=== PATIENT | female | born 1950 | race Caucasian/White ===

== ENCOUNTER 2017-07-08 11:48 | Outpatient (CLI) | payer MEDICARE, BC ==
--- NOTE | 2017-07-08 15:59 | PET ---
PET CT WITH ATTENUATION CORRECTION: HISTORY: Manthle cell lymphoma, chronic. Evaluation for restaging. COMPARISON: 07/16/16. TECHNIQUE: PET scan with CT attenuation correction is performed from the base of the brain to the proximal thigh s following the intravenous administration of 10.2 mCi of [id number]. FINDINGS: HEAD AND NECK: Previously noted hypermetabolic activity in the base of the tongue is no longer present. No new area s of hypermetabolic activity. CHEST: Redemonstration of hypermetabolic activity involving the anterior left chest wall and left axillary l ymph node, due to previous silicone granulomas. No new areas of abnormal FDG localization of the kimmie [address]. ABDOMEN AND PELVIS: No abnormal FDG localization. OSSEOUS STRUCTURES: No abnormal FDG localization. IMPRESSION: No abnormal fluorodeoxyglucose localization. Findings suggest good response to therapy. POS: [facility]
== END 2017-07-08 11:49 | disposition home or self-care (01) ==
LOC: PET 11:48
PROVIDERS: ATTEND Internal Medicine Medical Oncology
DX: C83.18 Mantle cell lymphoma, lymph nodes of multiple sites (principal)
CPT/HCPCS: 78815; A9552

== ENCOUNTER 2017-07-29 08:10 | Outpatient (CLI) | payer MEDICARE, BC | END 2017-07-29 08:11 | disposition home or self-care (01) | LOC: BICMAMMO 08:10 | PROVIDERS: ATTEND Internal Medicine Medical Oncology | DX: Z12.31 Encounter for screening mammogram for malignant neoplasm of breast (principal); Z85.72 Personal history of non-Hodgkin lymphomas | CPT/HCPCS: 77063; 77067 ==

== ENCOUNTER 2018-05-28 07:29 | Outpatient (CLI) | payer MEDICARE, BC ==
--- NOTE | 2018-05-28 11:30 | PET ---
PET WITH CT SKULL TO MID THIGH: CLINICAL HISTORY: Lymphoma, follow-up, restaging. Reference made to prior PET CT exams and reference is also made to prior mammograms. Comparison PET C Ts date back to June 2015. BIODISTRIBUTION: There is appropriate biodistribution of radiotracer activity. RADIOPHARMACEUTICAL: 11.7 mCi F18-FDG IV intermixed with 10 mL 0.9% sodium chloride. FINDINGS: Redemonstration of multiple hypermetabolic soft tissue masses, noncalcified, within the left anterior chest wall/breast tissue with persistence of an area of postoperative scar/soft tissue distortion al jose r the left lateral aspect. These findings remain hypermetabolic with a SUV measuring up to approxim ately 10, comparing to SUV of approximately 9 maximum on recent comparison exam dated 07/08/17. There has been interval enlargement of a soft tissue mass of the right axilla, now measuring approxim ately 2.9 cm in transverse diameter compared to 2.1 cm on the prior exam, with a SUV of approximately 5.2, and this finding was not hypermetabolic on the prior exam. In addition, there is an approximate ly 8.0 mm hypermetabolic lymph node anterior to the right shoulder girdle within the subcutaneous tis sues with a SUV of approximately 3.5. There are new subtle areas of increased metabolic activity invo lving anterior right ribs, approximately 4th/5th rib levels, with a SUV approximating 2.5. Focus of i ncreased metabolic activity along the expected confines of the left trochanteric bursa may relate to a reactive etiology. No hypermetabolic mass or adenopathy identified within the abdomen or pelvis. Head and neck regions are grossly unremarkable by PET evaluation. IMPRESSION: Findings which are suspicious for interval development of metabolically active lymphoma, notably at t he right chest wall, as discussed above. The dominant right axillary-region mass would be amenable to ultrasound guided biopsy to further evaluate. For the subtle activity within right ribs, follow-up with bone scan may prove useful as clinically in dicated. Redemonstration of multiple hypermetabolic noncalcified soft tissue masses of the left breast/anterio r left chest wall. Telephone call with findings and recommendations was placed to patient's physician, venita Mejia the time of interpretation, 1030 hours on 05/28/18. CODE CR. POS: [facility]
== END 2018-05-28 07:30 | disposition home or self-care (01) ==
LOC: PET 07:29
PROVIDERS: ATTEND Internal Medicine Medical Oncology
DX: C83.10 Mantle cell lymphoma, unspecified site (principal); N64.89 Other specified disorders of breast; R59.0 Localized enlarged lymph nodes
CPT/HCPCS: 78815; A9552

== ENCOUNTER 2018-06-12 08:02 | Day surgery (SDC) | payer MEDICARE, BC ==
[2018-06-11 15:55] VITALS: BMI 35.2
[2018-06-12 08:29] LABS: INR-International Normal Ratio 0.9; PTT 28.3 SEC (22.9-36.1); Prothrombin Time 12.7 SEC (12.0-14.7)
[2018-06-12] MEDS ORDERED: Prevnar 13-Val Conj/PF 0.5 ML SYRINGE IM ONE (09:00)
[2018-06-12 09:01] VITALS: BP 175/68; TEMP 98.2
[2018-06-12] MEDS ORDERED: Fentanyl 100 MCG/2 ML VIAL ONE (09:09)
[2018-06-12] MEDS ORDERED: Midazolam HCl 2 mg/2 ml Vial ONE (09:10)
--- NOTE | 2018-06-12 12:11 | CT ---
CT GUIDED CHEST WALL MASS BIOPSY: HISTORY: Hypermetabolic chest wall adenopathy. CONSCIOUS SEDATION: 1 mg Versed, IV. 50 mcg Fentanyl, IV. At least 30 minutes were spent with the patient for conscious sedation. FINDINGS: After explaining the procedure and answering all questions, limited CT imaging of the chest was perfo rmed. Sterile technique, buffered local anesthesia, conscious sedation, and CT guidance were used to carefully advance a 17-gauge Trocar needle to the left anterior chest wall mass at the medial aspect of the breast via a medial approach. Position was confirmed with CT. Multiple 18-gauge core biopsy specimens were obtained and submitted to Dr. Sanderson from pathology for evaluation. Specimen adequacy was performed. The needle was removed. Postprocedure imaging shows no evidence of complication. T he patient tolerated the procedure well and was returned to the holding area in good condition for fu rther monitoring. IMPRESSION: Technically successful CT-guided chest wall mass biopsy. Pathology is pending. POS: [facility]
== END 2018-06-12 11:30 | disposition home or self-care (01) ==
LOC: CT 08:02
PROVIDERS: ATTEND Internal Medicine Medical Oncology
PROC: 0WB83ZX Excision of Chest Wall, Percutaneous Approach, Diagnostic (ICD-10-PCS; principal; 2018-06-12)
DX: C83.13 Mantle cell lymphoma, intra-abdominal lymph nodes (principal); F31.9 Bipolar disorder, unspecified; K21.9 Gastro-esophageal reflux disease without esophagitis; Z79.1 Long term (current) use of non-steroidal anti-inflammatories (NSAID); Z79.899 Other long term (current) drug therapy; Z88.2 Allergy status to sulfonamides; Z88.8 Allergy status to other drugs, medicaments and biological substances
CPT/HCPCS: 32405; 36415; 77012; 85610; 85730; 88184; 88305; 88333; 88334; J2250; J3010

== ENCOUNTER 2018-06-26 08:56 | Day surgery (SDC) | payer MEDICARE, BC ==
[2018-06-25 12:49] VITALS: BMI 39.0
[2018-06-26] MEDS ORDERED: Prevnar 13-Val Conj/PF 0.5 ML SYRINGE IM ONE (09:00)
[2018-06-26 11:58] VITALS: BP 160/82; TEMP 99.2
--- NOTE | 2018-06-26 13:45 | CT ---
CT GUIDED CHEST WALL MASS BIOPSY: INDICATIONS: Right chest mass with history of lymphoma and increased metabolic activity on recent PET imaging. SEDATION: Conscious sedation was administered, and the patient was continually monitored for an approximately 4 5-minute duration. MEDICATIONS: Documented in the nurse charting, within the radiology department. TECHNIQUE: Informed consent was obtained. The patient was escorted to the procedural suite and placed in the le ft decubitus position. The right chest wall was prepped and draped in the standard sterile fashion a nd the mass of interest was targeted utilizing CT fluoroscopy. After standard sterile prepping and d raping was performed, topical anesthesia was achieved with buffered 1% Lidocaine, and a small skin in cision was made, though which a 17 gauge trocar was advanced to the leading edge of the mass. Subseq uently, six core specimens, using an 18 gauge biopsy, were acquired. These were submitted to the [facility] hologist for interpretation. The specimens were deemed adequate for interpretation. Subsequently, a ll the devices were removed from the patient. No procedural complications were present. The patient was transferred to radiology holding and continuously monitored, in stable condition, prior to disch arge. IMPRESSION: Technically successful CT guided right chest wall mass biopsy. Pathology results are pending. POS: [facility]
== END 2018-06-26 13:15 | disposition home or self-care (01) ==
LOC: CT 08:56
PROVIDERS: ATTEND Internal Medicine Medical Oncology
PROC: 0WB83ZX Excision of Chest Wall, Percutaneous Approach, Diagnostic (ICD-10-PCS; principal; 2018-06-26)
DX: C83.13 Mantle cell lymphoma, intra-abdominal lymph nodes (principal); R22.2 Localized swelling, mass and lump, trunk; M19.90 Unspecified osteoarthritis, unspecified site; K21.9 Gastro-esophageal reflux disease without esophagitis; F31.9 Bipolar disorder, unspecified; Z79.1 Long term (current) use of non-steroidal anti-inflammatories (NSAID); Z79.899 Other long term (current) drug therapy; Z88.2 Allergy status to sulfonamides; Z88.6 Allergy status to analgesic agent; Z88.8 Allergy status to other drugs, medicaments and biological substances
CPT/HCPCS: 71250; 77012; 88184; 88304; 88313; 88333; 88334; 88341; 88342

== ENCOUNTER 2019-01-04 09:25 | Outpatient (CLI) | payer MEDICARE, BC ==
--- NOTE | 2019-01-04 10:09 | MMO ---
Bilateral MAMMO Bilat Screen [facility]. CLINICAL HISTORY: Patient is 68 years old and is seen for screening. The patient has no family history of breast cancer. The patient has a history of lymphoma. The patient has a history of left needle biopsy in July, - benign - ct guided core bx, Implants - 30 yrs ago. VIEWS: The views performed were: bilateral craniocaudal with tomosynthesis and bilateral mediolateral oblique with tomosynthesis. FILMS COMPARED: The present examination has been compared to prior imaging studies performed at [facility] [place] [facility] on 07/15/2013, 01/13/2015, 08/08/2015 and 07/29/2017. MAMMOGRAM FINDINGS: The breasts are heterogeneously dense, which could obscure a lesion on mammography. Finding 1: There are stable benign appearing densities seen in both breasts. Finding 2: There are stable benign appearing calcifications seen in both breasts. There are no suspicious masses, suspicious calcifications, or new areas of architectural distortion. IMPRESSION: THERE IS NO MAMMOGRAPHIC EVIDENCE OF MALIGNANCY. A ROUTINE FOLLOW-UP MAMMOGRAM IN 1 YEAR IS RECOMMENDED. THE RESULTS OF THIS EXAM WERE SENT TO THE PATIENT. ACR BI-RADS Category 2 - Benign finding MAMMOGRAPHY NOTE: 1. A negative mammogram report should not delay a biopsy if a dominant of clinically suspicious mass is present. 2. Approximately 10% to 15% of breast cancers are not detected by mammography. 3. Adenosis and dense breasts may obscure an underlying neoplasm. Reported by: YAQUELIN KENNEDY MD Electonically Signed: [id number]
== END 2019-01-04 09:26 | disposition home or self-care (01) ==
LOC: BICMAMMO 09:25
PROVIDERS: ATTEND Internal Medicine Medical Oncology
DX: Z12.31 Encounter for screening mammogram for malignant neoplasm of breast (principal); Z91.89 Other specified personal risk factors, not elsewhere classified; Z85.72 Personal history of non-Hodgkin lymphomas
CPT/HCPCS: 77063; 77067

== ENCOUNTER 2019-01-05 11:25 | Outpatient (CLI) | payer MEDICARE, BC ==
--- NOTE | 2019-01-05 14:07 | PET ---
PET CT: 01/05/19 HISTORY: 68-year-old female with mantle cell lymphoma at base of tongue and GI tract. Silicone granuloma chest wall, axilla. Patient is on daily oral chemotherapy. Exam is requested for restaging. TECHNIQUE: PET scan with CT attenuation correction was performed from the vertex through the proximal thighs fol lowing the intravenous administration of 12 millicuries of 15-fluorodeoxyglucose in the right hand. COMPARISON: PET scan of 05/28/18. FINDINGS: Hypermetabolic soft tissue densities in the left anterior and lateral chest wall are again seen with maximum SUV of 10.6 (previously 14.4) anteriorly and 6 laterally (previously 7.2). The focal area of increased uptake in the right lateral chest/axilla has an SUV of 4.3 (previously 4. 8). This was biopsied on 06/26/2018 and found to represent a foreign body-like giant cell reaction. No ashley hypermetabolism is seen in the neck, mediastinum, hilar regions, abdomen, pelvis or inguinal regions. No hypermetabolic pulmonary nodules, liver, adrenal or skeletal lesions are seen. IMPRESSION: No new lesions are seen. 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 POS: [facility]
== END 2019-01-05 11:26 | disposition home or self-care (01) ==
LOC: PET 11:25
PROVIDERS: ATTEND Internal Medicine Medical Oncology
DX: C83.13 Mantle cell lymphoma, intra-abdominal lymph nodes (principal)
CPT/HCPCS: 78815; A9552

== ENCOUNTER 2019-11-04 08:58 | Outpatient (CLI) | payer MEDICARE, BC ==
--- NOTE | 2019-11-04 11:47 | PET ---
Radionucleotide PET scan with CT attenuation correction HISTORY: Mantle cell lymphoma intra-abdominal lymph nodes. Base of tongue. Silicone granuloma chest w all and axilla. No therapy. Restaging. COMPARISON: 01/05/2019. FINDINGS: Physiologic uptake of radiotracer is present throughout the enteric system and along each u rinary tract and is associated with the muscles of phonation. Uptake associated with a 0.7 cm deep subcutaneous left upper anterior chest wall nodule, immediately superficial to the pectoralis muscle now shows max SUV 3.1 (previously 1.3). More inferior and medial, uptake associated with the larger deep subcutaneous nodule is now 4.9 (prev iously 3.4) Within the deep slightly lateral aspect of the right breast extending to the axillary tail, immediate ly superficial to the chest wall, max SUV is now 6.8 (previously 4.3). Within the left breast tissue, stable appearing areas of masslike soft tissue density show max SUV up take:: Medial 11.0 (previously 10.6) Central 5.1 (previously 5.0) Inferior/lateral 8.0 (previously 6.0). No abnormal uptake is apparent within abdominal lymph nodes. Areas of heterogeneous slightly increased uptake are scattered throughout the skeleton, with an appea misael less focal than normally seen with neoplastic disease. The most conspicuous areas include: Left humeral head max SUV 3.2 Left acetabulum max SUV 3.6 (previously 2.5) Right acetabulum max SUV 3.2 (previously 2.1). Nondiagnostic CT attenuation correction images show air-fluid levels within the maxillary and sphenoi d sinuses. There is prominent calcification throughout the arterial structures including the coronary arteries. Tiny nonspecific subpleural nodule is noted at the right anterior lung base. IMPRESSION : Very little change. Activity associated with the left upper anterior chest wall nodules has increased slightly. The only new areas of mildly hypermetabolic activity are ill-defined foci within the skeleton. Favore d to be reactive rather than neoplastic. Maxillary/sphenoid sinusitis Prominent atherosclerosis.
== END 2019-11-04 08:59 | disposition home or self-care (01) ==
LOC: PET 08:58
PROVIDERS: ATTEND Internal Medicine Medical Oncology
DX: C83.13 Mantle cell lymphoma, intra-abdominal lymph nodes (principal); I70.90 Unspecified atherosclerosis; R22.2 Localized swelling, mass and lump, trunk; R93.89 Abnormal findings on diagnostic imaging of other specified body structures
CPT/HCPCS: 78815; A9552

== ENCOUNTER 2020-03-08 09:37 | Outpatient (CLI) | payer MEDICARE, BC ==
--- NOTE | 2020-03-08 10:31 | MMO ---
Bilateral MAMMO Bilat Screen [facility]. CLINICAL HISTORY: Patient is 69 years old and is seen for diagnostic exam. The patient has no family history of breast cancer. The patient has a history of lymphoma. The patient has a history of left needle biopsy in July, - benign - ct guided leaked and Implants - 30 yrs ago. VIEWS: The views performed were: bilateral craniocaudal with tomosynthesis; bilateral mediolateral oblique with tomosynthesis; and bilateral mediolateral with tomosynthesis. FILMS COMPARED: The present examination has been compared to prior imaging studies performed at [facility] on 01/13/2015, 08/08/2015, 07/29/2017 and 01/04/2019. This study has been interpreted with the assistance of computer-aided detection. MAMMOGRAM FINDINGS: The breasts are heterogeneously dense, which could obscure a lesion on mammography. Finding 1: There are stable masses seen in both breasts. Finding 2: There are stable benign appearing calcifications seen in both breasts. There are no suspicious masses, suspicious calcifications, or new areas of architectural distortion. IMPRESSION: THERE IS NO MAMMOGRAPHIC EVIDENCE OF MALIGNANCY. A ROUTINE FOLLOW-UP MAMMOGRAM IN 1 YEAR IS RECOMMENDED. THE RESULTS OF THIS EXAM WERE SENT TO THE PATIENT. ACR BI-RADS Category 2 - Benign finding MAMMOGRAPHY NOTE: 1. A negative mammogram report should not delay a biopsy if a dominant of clinically suspicious mass is present. 2. Approximately 10% to 15% of breast cancers are not detected by mammography. 3. Adenosis and dense breasts may obscure an underlying neoplasm. Reported by: SHARDA CUEVAS MD Electonically Signed: [id number]
== END 2020-03-08 09:38 | disposition home or self-care (01) ==
LOC: BICMAMMO 09:37
PROVIDERS: ATTEND Internal Medicine Medical Oncology
DX: Z12.31 Encounter for screening mammogram for malignant neoplasm of breast (principal); Z85.72 Personal history of non-Hodgkin lymphomas; Z91.89 Other specified personal risk factors, not elsewhere classified; Z98.82 Breast implant status
CPT/HCPCS: 77063; 77067

== ENCOUNTER 2020-08-07 07:22 | Outpatient (CLI) | payer MEDICARE, BC | END 2020-08-07 07:23 | disposition home or self-care (01) | LOC: PET 07:22 | PROVIDERS: ATTEND Internal Medicine Medical Oncology | DX: C83.10 Mantle cell lymphoma, unspecified site (principal) | CPT/HCPCS: 78815; A9552 ==

== ENCOUNTER 2021-03-13 11:44 | Outpatient (CLI) | payer MEDICARE, BC | END 2021-03-13 11:45 | disposition home or self-care (01) | LOC: BICMAMMO 11:44 | PROVIDERS: ATTEND Internal Medicine Medical Oncology | DX: Z12.31 Encounter for screening mammogram for malignant neoplasm of breast (principal); Z85.72 Personal history of non-Hodgkin lymphomas | CPT/HCPCS: 77063; 77067 ==

== ENCOUNTER 2021-09-18 08:00 | Outpatient (CLI) | payer MEDICARE, BC | END 2021-09-18 08:01 | disposition home or self-care (01) | LOC: PET 08:00 | PROVIDERS: ATTEND Internal Medicine Medical Oncology | DX: C83.13 Mantle cell lymphoma, intra-abdominal lymph nodes (principal); J32.0 Chronic maxillary sinusitis | CPT/HCPCS: 78815; A9552 ==

== ENCOUNTER 2021-11-30 13:29 | Inpatient (IN) | payer MEDICARE, BC ==
[~2021-11-30 13:29] MED LIST: ISOVUE-370 76%-LOCM 1 ML ONE
[2021-11-30 14:23] LABS: ALT (SGPT) 11 U/L (8-55); AST (SGOT) 22 U/L (5-34); Albumin 3.7 g/dL (3.4-4.8); Alkaline Phosphatase 108 U/L (40-110); Anion Gap 17 mmol/L (10-20); BUN (Urea Nitrogen) 11 mg/dL (9.8-20.1); Bilirubin, Total 0.4 mg/dL (0.2-1.2); Calc. Creatinine Clearance 0 mL/min (70-130); Calcium 8.6 mg/dL (7.8-10.44); Carbon Dioxide 21 mmol/L (23-31); Chloride 101 mmol/L (98-107); Estimated GFR 64; Globulin 2.7 g/dL (2.4-3.5); Glucose 100 mg/dL (80-115); Potassium 4.4 mmol/L (3.5-5.1); Protein, Total 6.4 g/dL (5.8-8.1); Sodium 135 mmol/L (136-145)
[2021-11-30 14:36] LABS: #Lymphocytes 1.2 thou/uL (1.20-3.40); #Monocytes 0.8 thou/uL (0.11-0.59); #Neutrophils 4.6 thou/uL (1.40-6.50); %Basophils 0.2 % (0.0-1.0); %Eosinophils 0.4 % (0.0-10.0); %Lymphocytes 17.7 % (21.0-51.0); %Monocytes 11.5 % (0.0-10.0); %Neutrophils 70.3 % (42.0-75.0); Hemoglobin 13.6 g/dL (12.0-16.0); Mean Corpuscular HGB CONC 33.3 g/dL (32.0-36.0); Mean Corpuscular Hemoglobin 30.6 pg (27.0-31.0); Mean Corpuscular Volume 92.1 fL (78.0-98.0); Mean Platelet Volume 7.1 fL (7.4-10.4); Platelet Count 205 thou/uL (130-400); RBC Distribution Width 12.4 % (11.5-14.5); Red Blood Cell (RBC) Count 4.45 mill/uL (4.20-5.40); White Blood Cell (WBC) Count 6.6 thou/uL (4.8-10.8)
[2021-11-30 14:36] LABS: Bilirubin Negative (Negative); Blood, Urine Negative (Negative); Clarity Clear (Clear); Glucose, Urine (Dipstick) Normal (Negative); Ketone, Urine Negative (Negative); Leukocyte Negative Leu/uL (Negative); Nitrite Negative (Negative); Protein, Urine (Dipstick) Negative (Neg-Trace); Specific Gravity, Urine 1.019 (1.002-1.036); Urobilinogen Normal mg/dL (Less than 2); pH, Urine 7.5 (5.0-9.0)
[2021-11-30 14:40] LABS: INR-International Normal Ratio 1.1; PTT 31.1 sec (22.9-36.1); Prothrombin Time 13.9 sec (12.0-14.7)
[2021-11-30 14:44] LABS: Amphetamine Not Detected (NotDetected); Barbiturates Screen Not Detected (NotDetected); Benzodiazepine Screen Detected (NotDetected); Cocaine Metabolite Screen Not Detected (NotDetected); Methadone Not Detected (NotDetected); Methamphetamine Not Detected (NotDetected); Opiate Screen Not Detected (NotDetected); Oxycodone Screen Not Detected (NotDetected); Phencyclidine (PCP) Not Detected (NotDetected); THC/Cannabinoid Screen Not Detected (NotDetected); Tricyclic Screen Detected (NotDetected)
[2021-11-30 14:57] LABS: Acetaminophen Less than 10.0 mcg/mL (10.0-30.0); Alcohol Less than 10 mg/dL (Less than 10); Salicylate Less than 8.0 mg/dL (15.0-30.0)
[2021-11-30] MEDS ORDERED: Ondansetron PF 4 MG/2 ML Vial IVP PRN (17:16)
[2021-11-30] MEDS ORDERED: Ondansetron ODT 4 MG TAB PO PRN (17:16)
[2021-11-30] MEDS ORDERED: hydrALAZINE 20 MG/ML VIAL SLOW IVP PRN (17:19)
[2021-11-30] MEDS ORDERED: Aspirin 325 mg Enteric Coated Tablet PO SCH (17:30)
[2021-11-30 18:30] VITALS: BMI 35.9
[2021-11-30] MEDS: Acetaminophen 325 MG TAB PO PRN (20:21)
[2021-11-30] MEDS: Atorvastatin Calcium 40 MG TAB PO SCH (20:22)
[2021-11-30 22:23] LABS: SARS-CoV-2 NAA Rapid Test DETECTED (NotDetected)
[2021-12-01] MEDS: Acetaminophen 325 MG TAB PO PRN ×2 (04:43→20:22)
[2021-12-01 06:00] LABS: #Lymphocytes 1.7 thou/uL (1.20-3.40); #Monocytes 1.1 thou/uL (0.11-0.59); #Neutrophils 5.4 thou/uL (1.40-6.50); %Basophils 0.2 % (0.0-1.0); %Eosinophils 0.3 % (0.0-10.0); %Lymphocytes 20.4 % (21.0-51.0); %Monocytes 13.6 % (0.0-10.0); %Neutrophils 65.5 % (42.0-75.0); Hemoglobin 13.8 g/dL (12.0-16.0); Mean Corpuscular HGB CONC 33.4 g/dL (32.0-36.0); Mean Corpuscular Hemoglobin 30.9 pg (27.0-31.0); Mean Corpuscular Volume 92.7 fL (78.0-98.0); Mean Platelet Volume 7.2 fL (7.4-10.4); Platelet Count 200 thou/uL (130-400); RBC Distribution Width 12.6 % (11.5-14.5); Red Blood Cell (RBC) Count 4.45 mill/uL (4.20-5.40); White Blood Cell (WBC) Count 8.3 thou/uL (4.8-10.8)
[2021-12-01 06:26] LABS: ALT (SGPT) 11 U/L (8-55); AST (SGOT) 18 U/L (5-34); Alkaline Phosphatase 113 U/L (40-110); Anion Gap 19 mmol/L (10-20); BUN (Urea Nitrogen) 14 mg/dL (9.8-20.1); Bilirubin, Total 0.5 mg/dL (0.2-1.2); Calc. Creatinine Clearance 83 mL/min (70-130); Carbon Dioxide 23 mmol/L (23-31); Chloride 101 mmol/L (98-107); Cholesterol 149 mg/dl (< 200 Desired); Estimated GFR 58; Globulin 2.8 g/dL (2.4-3.5); Glucose 96 mg/dL (80-115); HDL Cholesterol 30 mg/dL (>60 Neg Risk); LDL Cholesterol, Calculated 89 mg/dL; Potassium 3.6 mmol/L (3.5-5.1); Protein, Total 6.8 g/dL (5.8-8.1); Sodium 139 mmol/L (136-145); Triglycerides 151 mg/dL (Less than 150)
[2021-12-01] MEDS ORDERED: Lorazepam 1 MG TAB PO PRN (09:10)
[2021-12-01] MEDS: Enoxaparin Sodium 30 MG/0.3 ML SYRINGE SC SCH (10:12)
[2021-12-01] MEDS: Aspirin 81 mg Enteric Coated Tablet PO SCH (10:12)
[2021-12-01] MEDS: REMDESIVIR 200 MG in Sodium Chloride 0.9% 250 ML 210 ML IV SCH ×2 (13:20→14:24)
[2021-12-01] MEDS ORDERED: REMDESIVIR 200 MG in Sodium Chloride 0.9% 250 ML 210 ML IV SCH (14:00)
[2021-12-01] MEDS: Famotidine 20 MG TAB PO SCH (20:22)
[2021-12-01] MEDS: Atorvastatin Calcium 40 MG TAB PO SCH (20:22)
[2021-12-01] MEDS: Ipratropium/Albuterol Sulfate 4 GM AER IH SCH (20:22)
[2021-12-02] MEDS: Ipratropium/Albuterol Sulfate 4 GM AER IH SCH ×4 (00:01→20:14)
[2021-12-02] MEDS: Acetaminophen 325 MG TAB PO PRN ×2 (02:14→20:19)
[2021-12-02] MEDS: REMDESIVIR 100 MG in Sodium Chloride 0.9% 250 ML 230 ML IV SCH (09:09)
[2021-12-02] MEDS: Enoxaparin Sodium 30 MG/0.3 ML SYRINGE SC SCH (09:09)
[2021-12-02] MEDS: Famotidine 20 MG TAB PO SCH ×2 (09:09→20:08)
[2021-12-02] MEDS: Aspirin 81 mg Enteric Coated Tablet PO SCH (09:09)
[2021-12-02] MEDS ORDERED: REMDESIVIR 100 MG in Sodium Chloride 0.9% 250 ML 230 ML IV SCH (13:00)
[2021-12-02] MEDS ORDERED: ALPRAZolam 0.5 MG TAB PO PRN (16:36)
[2021-12-02] MEDS: Dexamethasone 4 mg/ml Vial SLOW IVP SCH (16:50)
[2021-12-02] MEDS: Atorvastatin Calcium 40 MG TAB PO SCH (20:08)
[2021-12-02] MEDS: Escitalopram Oxalate 10 mg Tablet PO SCH (20:09)
[2021-12-03] MEDS: Ipratropium/Albuterol Sulfate 4 GM AER IH SCH ×5 (01:26→20:24)
[2021-12-03] MEDS: ALPRAZolam 1 MG TAB PO PRN ×2 (01:26→20:31)
[2021-12-03 05:19] LABS: #Lymphocytes 0.6 thou/uL (1.20-3.40); #Monocytes 0.2 thou/uL (0.11-0.59); #Neutrophils 6.2 thou/uL (1.40-6.50); %Eosinophils 0.3 % (0.0-10.0); %Lymphocytes 8.7 % (21.0-51.0); %Monocytes 2.8 % (0.0-10.0); %Neutrophils 88.2 % (42.0-75.0); Hemoglobin 13.1 g/dL (12.0-16.0); Mean Corpuscular HGB CONC 32.4 g/dL (32.0-36.0); Mean Corpuscular Hemoglobin 30.3 pg (27.0-31.0); Mean Corpuscular Volume 93.6 fL (78.0-98.0); Mean Platelet Volume 7.4 fL (7.4-10.4); Platelet Count 180 thou/uL (130-400); RBC Distribution Width 12.3 % (11.5-14.5); Red Blood Cell (RBC) Count 4.31 mill/uL (4.20-5.40)
[2021-12-03 05:43] LABS: ALT (SGPT) 12 U/L (8-55); AST (SGOT) 15 U/L (5-34); Albumin 3.9 g/dL (3.4-4.8); Alkaline Phosphatase 115 U/L (40-110); Anion Gap 15 mmol/L (10-20); BUN (Urea Nitrogen) 15 mg/dL (9.8-20.1); Bilirubin, Total 0.4 mg/dL (0.2-1.2); CRP (Inflammatory) 12.95 mg/dL (= or < 0.5); Calc. Creatinine Clearance 92 mL/min (70-130); Calcium 9.2 mg/dL (7.8-10.44); Carbon Dioxide 24 mmol/L (23-31); Chloride 103 mmol/L (98-107); Estimated GFR 66; Glucose 169 mg/dL (80-115); Potassium 3.9 mmol/L (3.5-5.1); Protein, Total 6.9 g/dL (5.8-8.1); Sodium 138 mmol/L (136-145)
[2021-12-03] MEDS: REMDESIVIR 100 MG in Sodium Chloride 0.9% 250 ML 230 ML IV SCH (09:39)
[2021-12-03] MEDS: Enoxaparin Sodium 30 MG/0.3 ML SYRINGE SC SCH (09:39)
[2021-12-03] MEDS: Aspirin 81 mg Enteric Coated Tablet PO SCH (09:40)
[2021-12-03] MEDS: Famotidine 20 MG TAB PO SCH ×2 (09:40→20:24)
[2021-12-03] MEDS: Dexamethasone 4 mg/ml Vial SLOW IVP SCH (16:24)
[2021-12-03] MEDS: Acetaminophen 325 MG TAB PO PRN (18:12)
[2021-12-03] MEDS: Atorvastatin Calcium 40 MG TAB PO SCH (20:24)
[2021-12-03] MEDS: Escitalopram Oxalate 10 mg Tablet PO SCH (20:24)
[2021-12-04 05:07] LABS: #Lymphocytes 0.6 thou/uL (1.20-3.40); #Monocytes 0.3 thou/uL (0.11-0.59); #Neutrophils 7.8 thou/uL (1.40-6.50); %Basophils 0.5 % (0.0-1.0); %Eosinophils 0.1 % (0.0-10.0); %Neutrophils 89.4 % (42.0-75.0); Hemoglobin 12.3 g/dL (12.0-16.0); Mean Corpuscular HGB CONC 32.8 g/dL (32.0-36.0); Mean Corpuscular Hemoglobin 30.7 pg (27.0-31.0); Mean Corpuscular Volume 93.5 fL (78.0-98.0); Mean Platelet Volume 7.6 fL (7.4-10.4); Platelet Count 200 thou/uL (130-400); RBC Distribution Width 12.3 % (11.5-14.5); Red Blood Cell (RBC) Count 4.02 mill/uL (4.20-5.40); White Blood Cell (WBC) Count 8.7 thou/uL (4.8-10.8)
[2021-12-04 05:25] LABS: ALT (SGPT) 9 U/L (8-55); AST (SGOT) 11 U/L (5-34); Albumin 3.8 g/dL (3.4-4.8); Alkaline Phosphatase 108 U/L (40-110); Anion Gap 16 mmol/L (10-20); BUN (Urea Nitrogen) 23 mg/dL (9.8-20.1); Bilirubin, Total 0.2 mg/dL (0.2-1.2); Calc. Creatinine Clearance 89 mL/min (70-130); Calcium 9.2 mg/dL (7.8-10.44); Carbon Dioxide 23 mmol/L (23-31); Chloride 104 mmol/L (98-107); Estimated GFR 64; Globulin 2.7 g/dL (2.4-3.5); Glucose 154 mg/dL (80-115); Potassium 3.8 mmol/L (3.5-5.1); Protein, Total 6.5 g/dL (5.8-8.1); Sodium 139 mmol/L (136-145)
[2021-12-04] MEDS: Enoxaparin Sodium 30 MG/0.3 ML SYRINGE SC SCH (10:01)
[2021-12-04] MEDS: Ipratropium/Albuterol Sulfate 4 GM AER IH SCH ×3 (10:02→19:33)
[2021-12-04] MEDS: REMDESIVIR 100 MG in Sodium Chloride 0.9% 250 ML 230 ML IV SCH (10:02)
[2021-12-04] MEDS: Aspirin 81 mg Enteric Coated Tablet PO SCH (10:02)
[2021-12-04] MEDS: Famotidine 20 MG TAB PO SCH ×2 (10:02→20:25)
[2021-12-04] MEDS: Acetaminophen 325 MG TAB PO PRN ×2 (11:07→19:49)
[2021-12-04] MEDS: ALPRAZolam 1 MG TAB PO PRN ×2 (11:07→19:48)
[2021-12-04 11:31] LABS: SARS-CoV-2 IgG Spike Ab Interp Non-Reactive (NonReactive); SARS-CoV-2 IgG Spike Conc/Indx 19.1 AU/mL (0.00-50.0)
[2021-12-04] MEDS: Dexamethasone 4 mg/ml Vial SLOW IVP SCH (16:21)
[2021-12-04] MEDS: Atorvastatin Calcium 40 MG TAB PO SCH (20:25)
[2021-12-04] MEDS: Escitalopram Oxalate 10 mg Tablet PO SCH (20:26)
[2021-12-05] MEDS: Ipratropium/Albuterol Sulfate 4 GM AER IH SCH ×3 (02:44→12:27)
[2021-12-05 05:05] LABS: #Lymphocytes 0.7 thou/uL (1.20-3.40); #Monocytes 0.3 thou/uL (0.11-0.59); #Neutrophils 6.1 thou/uL (1.40-6.50); %Eosinophils 0.3 % (0.0-10.0); %Lymphocytes 9.1 % (21.0-51.0); %Monocytes 3.8 % (0.0-10.0); %Neutrophils 86.8 % (42.0-75.0); Hemoglobin 11.8 g/dL (12.0-16.0); Mean Corpuscular HGB CONC 32.1 g/dL (32.0-36.0); Mean Corpuscular Hemoglobin 29.8 pg (27.0-31.0); Mean Corpuscular Volume 92.6 fL (78.0-98.0); Mean Platelet Volume 7.9 fL (7.4-10.4); Platelet Count 198 thou/uL (130-400); RBC Distribution Width 12.4 % (11.5-14.5); Red Blood Cell (RBC) Count 3.97 mill/uL (4.20-5.40); White Blood Cell (WBC) Count 7.1 thou/uL (4.8-10.8)
[2021-12-05 05:35] LABS: ALT (SGPT) 9 U/L (8-55); AST (SGOT) 11 U/L (5-34); Albumin 3.6 g/dL (3.4-4.8); Alkaline Phosphatase 97 U/L (40-110); Anion Gap 15 mmol/L (10-20); BUN (Urea Nitrogen) 27 mg/dL (9.8-20.1); Bilirubin, Total 0.2 mg/dL (0.2-1.2); Calc. Creatinine Clearance 104 mL/min (70-130); Calcium 8.8 mg/dL (7.8-10.44); Carbon Dioxide 24 mmol/L (23-31); Chloride 105 mmol/L (98-107); Estimated GFR 76; Globulin 2.4 g/dL (2.4-3.5); Glucose 138 mg/dL (80-115); Sodium 140 mmol/L (136-145)
[2021-12-05] MEDS: Famotidine 20 MG TAB PO SCH (08:18)
[2021-12-05] MEDS: Aspirin 81 mg Enteric Coated Tablet PO SCH (08:18)
[2021-12-05] MEDS: REMDESIVIR 100 MG in Sodium Chloride 0.9% 250 ML 230 ML IV SCH (08:18)
[2021-12-05] MEDS: Enoxaparin Sodium 30 MG/0.3 ML SYRINGE SC SCH (08:19)
[2021-12-05] MEDS: Acetaminophen 325 MG TAB PO PRN (12:21)
[2021-12-05] MEDS ORDERED: Atenolol 25 MG TAB PO SCH (13:30)
[2021-12-05 16:13] VITALS: BP 191/99; TEMP 98.2
== END 2021-12-05 16:42 | disposition home health service (06) | DRG 177 ==
LOC: ERS 13:29 → SUATTDRO 13:29 → NEURO 16:26 → OBSVTOIN 12-01 11:27
PROVIDERS: ADMIT Internal Medicine; ATTEND Internal Medicine
PROC: XW033E5 Introduction of Remdesivir Anti-infective into Peripheral Vein, Percutaneous Approach, New Technology Group 5 (ICD-10-PCS; principal; 2021-12-01)
PROC: 8E0ZXY6 Isolation (ICD-10-PCS; 2021-12-01)
PROC: 3E0333Z Introduction of Anti-inflammatory into Peripheral Vein, Percutaneous Approach (ICD-10-PCS; 2021-12-02)
DX: U07.1 COVID-19 (principal); J12.82 Pneumonia due to coronavirus disease 2019; G93.41 Metabolic encephalopathy; I10 Essential (primary) hypertension; F31.9 Bipolar disorder, unspecified; M19.90 Unspecified osteoarthritis, unspecified site; F41.9 Anxiety disorder, unspecified; Z66 Do not resuscitate; K21.9 Gastro-esophageal reflux disease without esophagitis; F39 Unspecified mood [affective] disorder; Z88.2 Allergy status to sulfonamides; Z88.1 Allergy status to other antibiotic agents; Z88.8 Allergy status to other drugs, medicaments and biological substances; Z79.899 Other long term (current) drug therapy; Z90.49 Acquired absence of other specified parts of digestive tract; Z98.890 Other specified postprocedural states; Z87.891 Personal history of nicotine dependence
CPT/HCPCS: 36415; 70450; 70496; 70498; 70551; 71045; 71250; 80053; 80061; 80306; 80307; 81003; 82140; 83036; 84146; 84443; 84484; 85025; 85610; 85730; 86140; 86769; 87040; 93005; 93306; G0378; J0248; J1100; J1650; J2405; J7050; Q9966; U0002

== ENCOUNTER 2022-03-12 08:00 | Outpatient (CLI) | payer MEDICARE, BC | END 2022-03-12 08:01 | disposition home or self-care (01) | LOC: PET 08:00 | PROVIDERS: ATTEND Internal Medicine Medical Oncology | DX: C83.13 Mantle cell lymphoma, intra-abdominal lymph nodes (principal); R11.2 Nausea with vomiting, unspecified; Z51.89 Encounter for other specified aftercare | CPT/HCPCS: 78815; A9552 ==

== ENCOUNTER 2022-03-14 13:28 | Outpatient (CLI) | payer MEDICARE, BC | END 2022-03-14 13:29 | disposition home or self-care (01) | LOC: BICMAMMO 13:28 | PROVIDERS: ATTEND Internal Medicine Medical Oncology | DX: Z12.31 Encounter for screening mammogram for malignant neoplasm of breast (principal); Z91.89 Other specified personal risk factors, not elsewhere classified; Z85.72 Personal history of non-Hodgkin lymphomas | CPT/HCPCS: 77063; 77067 ==

== ENCOUNTER 2022-03-25 07:16 | Outpatient (CLI) | payer MEDICARE, BC ==
[2022-03-25 10:59] LABS: Hemoglobin 13.2 g/dL (12.0-15.5)
[2022-03-25 11:16] LABS: Anion Gap 17 mmol/L (10-20); BUN (Urea Nitrogen) 17 mg/dL (9.8-20.1); Calc. Creatinine Clearance 0 mL/min (70-130); Calcium 8.9 mg/dL (7.8-10.44); Carbon Dioxide 22 mmol/L (23-31); Chloride 105 mmol/L (98-107); Estimated GFR 74; Glucose 97 mg/dL (80-115); Potassium 4.3 mmol/L (3.5-5.1); Sodium 140 mmol/L (136-145)
== END 2022-03-25 07:17 | disposition home or self-care (01) ==
LOC: LABBT 07:16
PROVIDERS: ATTEND Specialist
DX: Z01.818 Encounter for other preprocedural examination (principal); J32.0 Chronic maxillary sinusitis
CPT/HCPCS: 80048; 85014; 85018; 93005; 93010

== ENCOUNTER 2022-03-28 07:14 | Day surgery (SDC) | payer MEDICARE, BC ==
[2022-03-26 14:15] VITALS: BMI 37.8
[2022-03-28] MEDS ORDERED: Oxymetazoline HCl 0.05% (30 ML BOT) ONE ×2 (07:58→09:30)
[2022-03-28] MEDS ORDERED: Midazolam HCl 2 mg/2 ml Vial ONE (08:53)
[2022-03-28] MEDS ORDERED: EPINEPHrine 1 MG/ML AMP ONE ×2 (09:30→09:34)
[2022-03-28] MEDS ORDERED: Lidocaine 1% (PF) 30 ML VIAL ONE (09:30)
[2022-03-28] MEDS ORDERED: fentaNYL PF 100 MCG/2 ML SYRINGE ONE (09:53)
[2022-03-28] MEDS ORDERED: ePHEDrine 50 MG/ML VIAL ONE (09:57)
[2022-03-28] MEDS ORDERED: Dexamethasone 20 MG/5 ML VIAL ONE (09:57)
[2022-03-28] MEDS ORDERED: Rocuronium Bromide 10 MG/ML (10ML VIAL) ONE (09:57)
[2022-03-28] MEDS ORDERED: Ondansetron PF 4 MG/2 ML Vial ONE (09:57)
[2022-03-28] MEDS ORDERED: NEOSTIGMINE 3 MG/3 ML SYR 3 MG/3 ML SYRINGE ONE (09:57)
[2022-03-28] MEDS ORDERED: Glycopyrrolate 0.2 MG/ML 5 ML SYRINGE ONE (09:57)
[2022-03-28] MEDS ORDERED: PROPOFOL 200 MG/20 ML VIAL ONE (09:57)
[2022-03-28] MEDS ORDERED: HYDROcodone/Acetaminophen 5/325 mg Tablet ONE (12:05)
== END 2022-03-28 13:04 | disposition home or self-care (01) ==
LOC: SDC 07:14
PROVIDERS: ATTEND Specialist
PROC: 09BR8ZZ Excision of Left Maxillary Sinus, Via Natural or Artificial Opening Endoscopic (ICD-10-PCS; principal; 2022-03-28)
PROC: 09BQ8ZZ Excision of Right Maxillary Sinus, Via Natural or Artificial Opening Endoscopic (ICD-10-PCS; 2022-03-28)
PROC: 099X8ZZ Drainage of Left Sphenoid Sinus, Via Natural or Artificial Opening Endoscopic (ICD-10-PCS; 2022-03-28)
PROC: 099W8ZZ Drainage of Right Sphenoid Sinus, Via Natural or Artificial Opening Endoscopic (ICD-10-PCS; 2022-03-28)
DX: J32.8 Other chronic sinusitis (principal); G89.29 Other chronic pain; R51.9 Headache, unspecified; J34.3 Hypertrophy of nasal turbinates; K21.9 Gastro-esophageal reflux disease without esophagitis; L40.50 Arthropathic psoriasis, unspecified; E78.00 Pure hypercholesterolemia, unspecified; I10 Essential (primary) hypertension; Z85.72 Personal history of non-Hodgkin lymphomas; Z87.891 Personal history of nicotine dependence; Z79.1 Long term (current) use of non-steroidal anti-inflammatories (NSAID); Z79.82 Long term (current) use of aspirin; Z79.899 Other long term (current) drug therapy; Z88.2 Allergy status to sulfonamides; Z88.6 Allergy status to analgesic agent; Z88.8 Allergy status to other drugs, medicaments and biological substances
CPT/HCPCS: 87070; 87205; J0171; J1100; J2001; J2250; J2405; J2704; J3490

== ENCOUNTER 2022-09-26 08:00 | Outpatient (CLI) | payer MEDICARE, BC | END 2022-09-26 08:01 | disposition home or self-care (01) | LOC: PET 08:00 | PROVIDERS: ATTEND Internal Medicine Medical Oncology | DX: C83.13 Mantle cell lymphoma, intra-abdominal lymph nodes (principal) | CPT/HCPCS: 78815; A9552 ==

== ENCOUNTER 2022-12-26 09:09 | Outpatient (CLI) | payer MEDICARE, BC | END 2022-12-26 09:10 | disposition home or self-care (01) | LOC: BICMAMMO 09:09 | PROVIDERS: ATTEND Internal Medicine Medical Oncology | DX: N63.10 Unspecified lump in the right breast, unspecified quadrant (principal); N63.20 Unspecified lump in the left breast, unspecified quadrant; C83.13 Mantle cell lymphoma, intra-abdominal lymph nodes | CPT/HCPCS: 77066; G0279 ==